=== PATIENT | female | born 2000 | race African-American/Black ===

== ENCOUNTER 2021-04-13 18:11 | Emergency (ER) | payer BC ==
[2021-04-13 18:19] VITALS: BP 111/60; PULSE 107; TEMP 98; BMI 34.0
[2021-04-14 01:16] LABS: EPI CELLS 14 /uL (0-25.1); HYALINE CASTS 1 /uL (0-3.1); PH,URINE 5.5 (5.0-8.0); URINE APPEARANCE Error; URINE BACTERIA 708 /uL (0-1359); URINE BILIRUBIN NEGATIVE (NEGATIVE); URINE COLOR YELLOW; URINE GLUCOSE (UA) NEGATIVE (NEGATIVE); URINE KETONE NEGATIVE (NEGATIVE); URINE LEUK ESTERASE 1+ (NEGATIVE); URINE NITRITE NEGATIVE (NEGATIVE); URINE PROTEIN NEGATIVE (NEGATIVE); URINE RBC 5 /uL (0-23.9); URINE UROBILINOGEN 0.2 mg/dL (0.2-1.0); URINE WBC 35 /uL (0-25.8)
== END 2021-04-13 22:50 | disposition home or self-care (01) ==
LOC: JER 18:11
DX: O26.892 Other specified pregnancy related conditions, second trimester (principal); R10.9 Unspecified abdominal pain; Z3A.21 21 weeks gestation of pregnancy
CPT/HCPCS: 81003; 87086; 99283-25

== ENCOUNTER 2021-08-19 04:32 | Inpatient (IN) | payer BC ==
[2021-08-19] MEDS ORDERED: BUTORPHANOL TARTRATE 2 MG/ML VIAL IVPB ONE (05:00)
[2021-08-19] MEDS ORDERED: PROMETHAZINE HCL 25 MG/1 ML VIAL IVPB ONE (05:00)
[2021-08-19] MEDS: ELECTROLYTE-148 SOLN 500 ML IV SCH ×2 (05:45→07:00)
[2021-08-19 06:02] VITALS: BMI 38.9
[2021-08-19] MEDS ORDERED: PROMETHAZINE HCL 25 MG/1 ML VIAL ONE (06:32)
[2021-08-19] MEDS ORDERED: BUTORPHANOL TARTRATE 2 MG/ML VIAL ONE (06:32)
[2021-08-19 07:38] LABS: INR 0.94 (0.83-1.09); PROTHROMBIN TIME (PATIENT) 10.8 SEC (9.7-13.0)
[2021-08-19 07:40] LABS: ACTIVATED PTT 29.5 SECONDS (25.2-36.5)
[2021-08-19] MEDS ORDERED: OXYTOCIN 20 UNITS in 0.9% NS 20 UNIT/1,000 ML INFUS.BAG IV ONE ×2 (09:36→11:28)
[2021-08-19] MEDS ORDERED: LIDOCAINE HCL 1% PRESERVATIVE FREE - 30ML VIAL ONE (09:55)
[2021-08-19] MEDS ORDERED: ACETAMINOPHEN 325 MG TABLET (FP) PO PRN (10:11)
[2021-08-19] MEDS ORDERED: oxyCODONE HCL 5 MG TABLET PO PRN (10:11)
[2021-08-19] MEDS ORDERED: BISACODYL 10 MG SUPP.RECT RC PRN (10:11)
[2021-08-19] MEDS ORDERED: BENZOCAINE 28 GM HEMORRHOIDAL OINTMENT TP PRN (10:11)
[2021-08-19] MEDS ORDERED: WITCH HAZEL 50% (TUCKS) 40 PAD/JAR PAD TP PRN (10:11)
[2021-08-19] MEDS ORDERED: BENZOCAINE 20% 57 GM BOTTLE TP PRN (10:11)
[2021-08-19] MEDS ORDERED: METHYLERGONOVINE MALEATE 0.2 MG/1 ML AMP IM PRN (10:11)
[2021-08-19] MEDS ORDERED: OXYTOCIN 20 UNITS in 0.9% NS 20 UNIT/1,000 ML INFUS.BAG IV SCH (10:15)
[2021-08-19 11:09] LABS: CORD HCO3 22.2 mmHg (20-29); CORD PCO2 62.1 mmHg (30-78); CORD pH 7.171 (7.14-7.44)
[2021-08-19 11:14] LABS: CORD HCO3 22.4 mmHg (20-29); CORD PCO2 50.1 mmHg (30-78); CORD pH 7.268 (7.14-7.44)
[2021-08-19] MEDS ORDERED: IBUPROFEN 600 MG TABLET (FP) PO ONE (11:48)
[2021-08-19] MEDS: IBUPROFEN 600 MG TABLET (FP) PO PRN (11:52)
[2021-08-20 06:46] LABS: BASO % 0.2 % (0-2.0); EOS % 0.6 % (0-4.5); HEMATOCRIT 34.5 % (32.4-45.2); LYMPH % 17.1 % (8-40); MCH 28.3 pg (25.7-33.7); MCHC 31.7 g/dl (32.0-36.0); MEAN CELL VOLUME 89.2 fl (80-96); MEAN PLT VOLUME 9.5 fl (7.5-11.1); MONO % 6.3 % (3.8-10.2); NEUT % 75.8 % (42.8-82.8); PLATELET COUNT 176 10^3/uL (134-434); RBC 3.87 M/mm3 (3.60-5.2); RDW 17.9 % (11.6-15.6); WHITE BLOOD COUNT 12.6 K/mm3 (4.0-10.0)
[2021-08-20] MEDS: PRENATAL VITAMINS W/ FOLIC ACID TABLET (FP) PO SCH (09:10)
[2021-08-20] MEDS: IBUPROFEN 600 MG TABLET (FP) PO PRN (11:40)
[2021-08-20] MEDS: ELECTROLYTE-148 SOLN 500 ML IV SCH ×2 (19:54)
[2021-08-20] MEDS ORDERED: SENNOSIDES/DOCUSATE COMBO (SENNA PLUS) TABLET (UD) PO PRN (22:00)
[2021-08-21] MEDS: IBUPROFEN 600 MG TABLET (FP) PO PRN ×2 (01:54→09:26)
[2021-08-21 08:58] VITALS: BP 112/64; PULSE 80; TEMP 98.2
[2021-08-21] MEDS: PRENATAL VITAMINS W/ FOLIC ACID TABLET (FP) PO SCH (09:26)
== END 2021-08-21 12:40 | disposition home or self-care (01) | DRG 807 ==
LOC: JDEL 04:32 → JLDR 05:00 → J3W 12:15
PROVIDERS: ADMIT Obstetrics & Gynecology; ATTEND Obstetrics & Gynecology
PROC: 10E0XZZ Delivery of Products of Conception, External Approach (ICD-10-PCS; principal; 2021-08-19)
PROC: 0HQ9XZZ Repair Perineum Skin, External Approach (ICD-10-PCS; 2021-08-19)
DX: O70.0 First degree perineal laceration during delivery (principal); Z37.0 Single live birth; O32.6XX0 Maternal care for compound presentation, not applicable or unspecified; Z3A.40 40 weeks gestation of pregnancy
CPT/HCPCS: 36415; 36600; 59409; 82803; 85025; 85610; 85730; 86762; 86780

== ENCOUNTER 2021-09-27 18:22 | Emergency (ER) | payer BC ==
[2021-09-27 18:55] VITALS: BP 136/93; PULSE 81; TEMP 98.9; BMI 32.9
[2021-09-27 22:38] LABS: URINE APPEARANCE TURBID; URINE BILIRUBIN 2+ (NEGATIVE); URINE COLOR RED; URINE GLUCOSE (UA) NEGATIVE (NEGATIVE); URINE KETONE NEGATIVE (NEGATIVE); URINE LEUK ESTERASE 3+ (NEGATIVE); URINE NITRITE POSITIVE (NEGATIVE); URINE PROTEIN 2+ (NEGATIVE); URINE UROBILINOGEN 0.2 mg/dL (0.2-1.0)
[2021-09-27 23:38] LABS: URINE RBC >100 /hpf (0-4); URINE WBC 15-20 (NEGATIVE)
[2021-09-27 23:39] LABS: EPI CELLS FEW /HPF; URINE BACTERIA MODERATE /hpf (NEGATIVE)
[2021-09-27 23:44] LABS: HYALINE CASTS 0.25 /uL (0-3.1)
[2021-09-28 00:23] LABS: BASO % 0.5 % (0-2.0); EOS % 1.9 % (0-4.5); HEMATOCRIT 41.6 % (32.4-45.2); HEMOGLOBIN 13.4 GM/dL (10.7-15.3); LYMPH % 46.3 % (8-40); MCH 28.2 pg (25.7-33.7); MCHC 32.3 g/dl (32.0-36.0); MEAN CELL VOLUME 87.4 fl (80-96); MEAN PLT VOLUME 10.3 fl (7.5-11.1); MONO % 6.7 % (3.8-10.2); NEUT % 44.6 % (42.8-82.8); PLATELET COUNT 228 10^3/uL (134-434); RBC 4.75 M/mm3 (3.60-5.2); RDW 15.3 % (11.6-15.6)
[2021-09-28 00:25] LABS: INR 1.06 (0.83-1.09); PROTHROMBIN TIME (PATIENT) 12.2 SEC (9.7-13.0)
[2021-09-28 00:35] LABS: CALCIUM 9.5 mg/dL (8.5-10.1)
[2021-09-28 00:36] LABS: BLOOD UREA NITROGEN 6.1 mg/dL (7-18)
[2021-09-28 00:39] LABS: CREATININE 0.8 mg/dL (0.55-1.3)
== END 2021-09-28 02:20 | disposition home or self-care (01) ==
LOC: JER 18:22
DX: N93.9 Abnormal uterine and vaginal bleeding, unspecified (principal)
CPT/HCPCS: 36415; 76830-TC; 80048; 81003; 85025; 85610; 87086; 87186; 99284-25